=== PATIENT | female | born 1955 | race Caucasian/White ===

== ENCOUNTER 2024-04-20 14:54 | Outpatient (CLI) | payer MEDICARE, OTHER | END 2024-04-20 23:59 | disposition home or self-care (01) | LOC: RAD 14:54 | PROVIDERS: ATTEND Physician Assistant | DX: S89.92XA Unspecified injury of left lower leg, initial encounter (principal); M17.12 Unilateral primary osteoarthritis, left knee; X58.XXXA Exposure to other specified factors, initial encounter; Y93.89 Activity, other specified; Y92.89 Other specified places as the place of occurrence of the external cause; Y99.8 Other external cause status | CPT/HCPCS: 73564; 76881 ==

== ENCOUNTER 2024-05-01 08:59 | Emergency (ER) | payer MEDICARE, OTHER ==
[~2024-05-01] VITALS: Ht 165.1 cm; Wt 85.9 kg
[2024-05-01 09:09] VITALS: BP 193/99; PULSE 60; RESP 18; TEMP 98.4; O2SAT 99
[2024-05-01] MEDS ORDERED: PRED20TA PO (11:12)
== END 2024-05-01 10:43 | disposition left against medical advice (07) ==
LOC: ER 09:00
DX: M17.11 Unilateral primary osteoarthritis, right knee (principal); Z88.8 Allergy status to other drugs, medicaments and biological substances; W19.XXXA Unspecified fall, initial encounter; Y93.89 Activity, other specified; Y92.89 Other specified places as the place of occurrence of the external cause; Y99.8 Other external cause status
CPT/HCPCS: 73564; 99283